=== PATIENT | female | born 1960 | race Caucasian/White ===

== ENCOUNTER → 2017-03-05 | Outpatient (REF) | payer OTHER | LOC: M LAB REF 13:28 | PROVIDERS: ATTEND Nurse Practitioner Family | DX: R31.29 Other microscopic hematuria (principal) ==

== ENCOUNTER → 2017-04-07 | Outpatient (CLI) | payer OTHER ==
[~2017-04-07] VITALS: Ht 167.6 cm; Wt 84.8 kg
--- NOTE | 2017-04-09 13:43 | REP ---
RENAL NUCLEAR SCAN PRE AND POST CAPTOPRIL ADMINISTRATION: Following the intravenous administration of 8.5 mCi of technetium-99m MAG 3, immediate flow images are obtained and the posterior projections showing slightly greater degree of perfusion on the left compared to the right. Delayed renal function images are performed every minute for a period of 30 minutes showing fairly symmetrical cortical uptake and washout with no evidence of urinary tract obstruction. Split function is 53.1% on the left and 46.9% on the right. Time to peak is 3 minutes bilaterally. T1/2 half is 8.5 minutes on the left and 8.8 minutes on the right, within normal limits. Renal function curves are normal in their downward slopes. There is minimal postvoid residual in the urinary bladder after voiding. Patient returned in 2 days following the pre-Captopril scan for a scan with Captopril administration. Patient underwent intravenous administration of 8.8 mCi of technetium-99m MAG 3 with oral administration of 50 mg of Captopril. Identical imaging technique is utilized. Once again there is a mildly greater degree of perfusion of the left kidney compared to the right. There is again similar appearing bilateral excretion with no urinary tract obstruction. Post Captopril scan shows split function of 52.1% on the left and 47.9% on the right. Time to peak is 2 minutes bilaterally. T1/2 on the left is 8.8 minutes and on the right 10.4 minutes, within normal limits. Renal function curves appear unchanged. IMPRESSION: Normal bilateral renal function is not affected by Captopril administration, with no compelling scintigraphic evidence of significant renal artery stenosis. Signed by Aba Cleveland MD 04/10/2017 05:51 P
== END ==
LOC: M RAD 10:05
PROVIDERS: ATTEND Nurse Practitioner Family
DX: N18.3 Chronic kidney disease, stage 3 (moderate) (principal)

== ENCOUNTER → 2017-05-27 | Outpatient (REF) | payer OTHER | LOC: M LAB REF 15:00 | PROVIDERS: ATTEND Nurse Practitioner Family | DX: R31.29 Other microscopic hematuria (principal); R10.9 Unspecified abdominal pain ==

== ENCOUNTER 2017-09-11 06:07 | Day surgery (SDC) | payer OTHER ==
[2017-09-11] MEDS ORDERED: LR 1,000 ML IV ×3 (06:30→10:15)
[2017-09-11] MEDS: LR 1,000 ML IV (06:56)
[2017-09-11] MEDS ORDERED: ROCURONIUM BROMIDE 50 MG/5 ML VIAL As Ordered ×2 (07:08→08:38)
[2017-09-11] MEDS ORDERED: PROPOFOL 200 MG/20 ML VIAL As Ordered (07:08)
[2017-09-11] MEDS ORDERED: LIDOCAINE 2% INJ 100 MG/5 ML SDV (FOR ANES.) As Ordered (07:08)
[2017-09-11] MEDS ORDERED: fentaNYL 250 MCG/5 ML INJECTION (J3010) As Ordered (07:09)
[2017-09-11] MEDS ORDERED: MIDAZOLAM INJ 2 MG/2 ML VIAL (J2250) As Ordered (07:09)
[2017-09-11] MEDS ORDERED: GLYCOPYRROLATE INJ 0.2 MG/ML 2 ML VIAL As Ordered ×2 (08:11)
[2017-09-11] MEDS ORDERED: NEOSTIGMINE 10 MG/10 ML VIAL (J2710) As Ordered (08:11)
[2017-09-11] MEDS ORDERED: ONDANSETRON 4MG/2ML VIAL (J2405) As Ordered (08:11)
[2017-09-11] MEDS ORDERED: ePHEDrine SULFATE 25 MG/5 ML(5MG/ML) SYRINGE As Ordered (08:17)
[2017-09-11] MEDS ORDERED: MORPHINE 10 MG/ML 1ML VIAL As Ordered (08:36)
[2017-09-11] MEDS ORDERED: PHENYLephrine HCL 500 MCG/5 ML (100MCG/ML) SYRINGE (J2370) As Ordered (09:33)
[2017-09-11] MEDS ORDERED: fentaNYL 100 MCG/2 ML INJECTION (J3010) IV (10:15)
[2017-09-11] MEDS ORDERED: IBUPROFEN 600 MG TAB PO (10:15)
[2017-09-11] MEDS ORDERED: NORCO, ANEXSIA 5/325MG TABLET (HYDROcodone/ACETAMINOPHEN) PO ×2 (10:15)
[2017-09-11] MEDS ORDERED: ONDANSETRON 4MG/2ML VIAL (J2405) IV (10:15)
== END 2017-09-11 13:33 | disposition home or self-care (01) ==
LOC: M SDC 06:07
DX: R10.2 Pelvic and perineal pain (principal); D30.3 Benign neoplasm of bladder; R31.9 Hematuria, unspecified; E03.9 Hypothyroidism, unspecified; E78.00 Pure hypercholesterolemia, unspecified; F32.9 Major depressive disorder, single episode, unspecified; K21.9 Gastro-esophageal reflux disease without esophagitis; M51.9 Unspecified thoracic, thoracolumbar and lumbosacral intervertebral disc disorder; N28.9 Disorder of kidney and ureter, unspecified; Z88.0 Allergy status to penicillin; Z88.1 Allergy status to other antibiotic agents; Z88.2 Allergy status to sulfonamides; Z88.5 Allergy status to narcotic agent; Z79.899 Other long term (current) drug therapy; Z87.891 Personal history of nicotine dependence; Z90.710 Acquired absence of both cervix and uterus
CPT/HCPCS: 58661

== ENCOUNTER → 2017-09-29 | Outpatient (REF) | payer OTHER ==
[2017-09-29 17:49] LABS: APPEARANCE, URINE CLEAR (CLEAR); BACTERIA, URINE AUTO NEGATIVE (NEGATIVE); BILIRUBIN, URINE AUTO NEGATIVE (NEGATIVE); BLOOD, URINE BLOOD 1+ (NEGATIVE); COLOR, URINE STRAW (YELLOW); GLUCOSE, URINE (UA) AUTO NEGATIVE (NEGATIVE); KETONE, URINE AUTO NEGATIVE (NEGATIVE); LEUKOCYTE ESTERASE, URINE AUTO NEGATIVE (NEGATIVE); NITRITE, URINE AUTO NEGATIVE (NEGATIVE); PROTEIN, URINE AUTO NEGATIVE (NEGATIVE); RBC, URINE AUTO 1 /HPF (0-3); SPECIFIC GRAVITY URINE AUTO 1.003 (1.002-1.035); SQUAMOUS EPITHELIAL CELL UR AU 0 /HPF (0-6); UROBILINOGEN, URINE AUTO 0.2 mg/dL (0.0-2.0); WBC, URINE AUTO 2 /HPF (0-3)
== END ==
LOC: M LAB REF 16:05
DX: R39.89 Other symptoms and signs involving the genitourinary system (principal)

== ENCOUNTER → 2019-04-20 | Outpatient (REF) | payer OTHER ==
[~2019-04-20] MED LIST: CETI10TA PO; CITA40TA4 PO; FLUTISP; LANS15CA PO; LEVO50TA5 PO; MELO7.5T7 PO; SIMV10TA2 PO
[2019-04-20 17:50] LABS: BACTERIA, URINE AUTO NEGATIVE (NEGATIVE); RBC, URINE AUTO 3 /HPF (0-3); SQUAMOUS EPITHELIAL CELL UR AU 0 /HPF (0-6); WBC, URINE AUTO 0 /HPF (0-3)
== END ==
LOC: M LAB REF 17:03
PROVIDERS: ATTEND Internal Medicine Nephrology
DX: R31.9 Hematuria, unspecified (principal)

== ENCOUNTER → 2020-04-19 | Outpatient (REF) | payer OTHER ==
[~2020-04-19] MED LIST changes: -SIMV10TA2 PO; +SIMV10TA21 PO
== END ==
LOC: M LAB REF 07:14
PROVIDERS: ATTEND Nurse Practitioner Family
DX: R31.9 Hematuria, unspecified (principal)

== ENCOUNTER → 2020-10-26 | Outpatient (REF) | payer OTHER ==
[2020-10-30 19:44] LABS: CREATININE, URINE 57.6 MG/DL; MALB URINE SIEMENS < 5.0 MG/L; MAU/CREAT RATIO 8.6 MCG/MG (0.0-30.0)
== END ==
LOC: M LAB REF 17:34
PROVIDERS: ATTEND Nurse Practitioner Family
DX: I12.9 Hypertensive chronic kidney disease with stage 1 through stage 4 chronic kidney disease, or unspecified chronic kidney disease (principal); E55.9 Vitamin D deficiency, unspecified

== ENCOUNTER → 2023-02-04 | Outpatient (CLI) | payer OTHER ==
[~2023-02-04] MED LIST changes: -CITA40TA4 PO; +CITA40TA7 PO; +FLUT50SP17; -FLUTISP
== END ==
LOC: M WHC 13:32
PROVIDERS: ATTEND Advanced Practice Midwife
DX: Z12.31 Encounter for screening mammogram for malignant neoplasm of breast (principal)